=== PATIENT | female | born 1995 | race Caucasian/White ===

== ENCOUNTER 2016-10-10 18:43 | Emergency (ER) | payer OTHER ==
[~2016-10-10] VITALS: Ht 165.1 cm; Wt 60.3 kg
--- NOTE | ~2016-10-10 | CR230 ---
[facility]. [facility] A Service of [facility] RADIOLOGY TEXT RESULTS PATIENT: ARA ROSENTHAL LOCATION: SED : [birth year] UNIT #: [id number] AGE: [address]: DEE SINGLETON SEX: F ORDER DR: [id number] [address] [address] [id number] E MR#: [id number] Acc #: [id number] NAME: ARA ROSENTHAL : 1995 SEX: F STUDY DATE/TIME: 10/10/2016 19:28 UNIT: SED ROOM: STUDY DESCRIPTION: CR Shoulder Min 2 View Rt Attending Physician: Dee Singleton Ordering Physician: Dee Singleton Primary Care Physician: Kendra Castellanos M.D. MEDICAL IMAGING REPORT This report is preliminary unless electronic signature is present. EXAM right shoulder INDICATIONS Trauma. Right shoulder pain. FINDINGS Three views of the right shoulder without comparison. There is no fracture or dislocation. Alignment is anatomic. IMPRESSION Normal right shoulder Dictated by... Mukesh Bennett M.D. THIS IS AN ELECTRONICALLY VERIFIED REPORT Mukesh Bennett M.D. at 10/11/2016 8:13 AM JAMIE/jacky TD: 10/11/2016 08:05 JOB #: [id number] MEDICAL IMAGING REPORT Page 1 of 1
--- NOTE | ~2016-10-10 | US134 ---
[facility] A Service of [facility] RADIOLOGY TEXT RESULTS PATIENT: ARA ROSENTHAL LOCATION: SED : [birth year] UNIT #: [id number] AGE: [address]: DEE SINGLETON SEX: F ORDER DR: [id number] [address] [address] [id number] E MR#: [id number] Acc #: [id number] NAME: ARA ROSENTHAL : 1995 SEX: F STUDY DATE/TIME: 10/10/2016 21:36 UNIT: SED ROOM: STUDY DESCRIPTION: US Transvaginal Attending Physician: Dee Singleton Ordering Physician: David Meadows M.D. Primary Care Physician: Kendra Castellanos M.D. MEDICAL IMAGING REPORT This report is preliminary unless electronic signature is present. EXAM Pelvic ultrasound INDICATION Vaginal bleeding for 1 month. Left-sided pelvic pain for 2 weeks. Last menstrual period 09/06/2016. COMPARISON None available. FINDINGS The uterus measures 6.6 x 2.9 x 4 cm. Echogenicity and echotexture of the uterine myometrium is homogeneous. The endometrial stripe is homogenous measuring 1 cm. The right ovary measures 3.2 x 2.1 x 2.1 cm. There is a small hyperechoic area in the central ovary measuring 7 mm. This is nonspecific however could represent a small ovarian dermoid. The left ovary measures 3.4 x 2.3 x 2.2 cm. There are multiple small follicles in the ovary. There is color-Doppler flow within both ovaries. No adnexal mass or free pelvic fluid. IMPRESSION 1. Small 6 mm hyperechoic area in the central right ovary. This is nonspecific however often small ovarian dermoids can have this appearance. 2. Otherwise, the pelvis is negative. No other significant abnormalities. Dictated by... [facility] A Service of [facility] RADIOLOGY TEXT RESULTS PATIENT: ARA ROSENTHAL LOCATION: SED : [birth year] UNIT #: [id number] AGE: [address]: DEE SINGLETON SEX: F ORDER DR: Mukesh Bennett M.D. THIS IS AN ELECTRONICALLY VERIFIED REPORT Mukesh Bennett M.D. at 10/11/2016 10:13 AM JAMIE/laureen TD: 10/11/2016 09:13 JOB #: [id number] MEDICAL IMAGING REPORT Page 1 of 1
[~2016-10-10 18:43] MED LIST: ALBUTEROL17 GM INH; BENADRYL25 M1 PO; BENADRYL25 MG PO; FAMOTIDINE PO; IMPLANON68 MG/IMPL; KEFLEX PO; MEDROL DOSEPAK4 MG DOB; NO MEDICATIONS; ZITHROMAX1 G/PKT PO
[2016-10-10] MEDS ORDERED: NO MEDICATIONS (19:02)
[2016-10-10 20:20] LABS: URINE SOURCE CLEAN CATCH
[2016-10-10 20:23] LABS: URINE APPEARANCE CLEAR; URINE BILIRUBIN NEG (NEG); URINE BLOOD NEG (NEG); URINE COLOR YELLOW; URINE GLUCOSE NEG (NORM); URINE KETONE NEG (NEG); URINE LEUKOCYTE ESTERASE NEG (NEG); URINE NITRATE NEG (NEG); URINE PH 7.5 (5-8); URINE PROTEIN NEG (NEG)
[2016-10-10 20:35] LABS: MICRO INDICATED? NO
[2016-10-10 21:15] LABS: BASOPHIL# 0.1 X10e3 (0-0.3); BASOPHIL% 0.7 % (0-2.5); DIFF IND NO; EOSINOPHIL# 0.3 X10e3 (0-0.7); HEMOGLOBIN 13.8 gm/dL (12.0-16.0); LYMPHOCYTE# 2.1 X10e3 (1.0-3.5); LYMPHOCYTE% 30.1 % (17.0-45.0); MEAN CELL VOLUME 86.2 FL (83-96); MEAN CORPUSCULAR HEMOGLOBIN 29.8 PG (28-34); MEAN CORPUSCULAR HGB CONC 34.5 g/dL (30-36); MEAN PLATELET VOLUME 8.6 FL (6.5-11.5); MONOCYTE# 0.7 X10e3 (0-1.0); MONOCYTE% 9.7 % (3.0-12.0); NEUTROPHIL# 3.9 X10e3 (1.5-7.1); NEUTROPHIL% 55.5 % (40-75); PLATELET COUNT 237 X10e3 (140-420); RED BLOOD COUNT 4.64 X10e (3.90-5.30); RED CELL DISTRIBUTION WIDTH 13.1 % (11.0-15.5)
[2016-10-10 21:24] LABS: BUN/CREATININE RATIO 15.71; CALCIUM SERUM 8.4 mg/dL (8.4-10.2); CREATININE SERUM 0.7 mg/dL (0.6-1.4); POTASSIUM 3.5 mmol/L (3.5-5.1)
[2016-10-12 20:20] LABS: CHLAMYDIA TRACH Not Detected (Not Detected); N GONOR Not Detected (Not Detected)
== END 2016-10-10 23:09 | disposition home or self-care (01) ==
LOC: SED 18:43
PROVIDERS: Physician Assistant
DX: S40.011A Contusion of right shoulder, initial encounter (principal); N93.8 Other specified abnormal uterine and vaginal bleeding; J45.909 Unspecified asthma, uncomplicated; F17.210 Nicotine dependence, cigarettes, uncomplicated; X58.XXXA Exposure to other specified factors, initial encounter
CPT/HCPCS: 36415; 73030; 76830; 80048; 81003; 84703; 85025; 87210; 87491; 87591; 87808; 87905; 96361; 96374; 99284; J1885

== ENCOUNTER 2016-10-13 21:31 | Emergency (ER) | payer OTHER ==
--- NOTE | ~2016-10-13 | CT2 ---
[facility] A Service of [facility] RADIOLOGY TEXT RESULTS PATIENT: ARA ROSENTHAL LOCATION: CFTX : [birth year] UNIT #: [id number] AGE: [address]: Kelly Chacon APRN SEX: F ORDER DR: [id number] [facility] [address] [place], [place] [address] [id number] E MR#: [id number] Acc #: [id number] NAME: ARA ROSENTHAL : 1995 SEX: F STUDY DATE/TIME: 10/14/2016 1:07 UNIT: CFTX ROOM: STUDY DESCRIPTION: CT Abd and Pelv W Cont Attending Physician: Kelly Chacon A.P.R.N. Ordering Physician: Kelly Chacon A.P.R.N. Primary Care Physician: Kendra Castellanos M.D. MEDICAL IMAGING REPORT This report is preliminary unless electronic signature is present EXAM CT abdomen and pelvis with contrast. INDICATIONS Severe urinary tract infection and generalized abdominal pain today. PROCEDURE Contrast-enhanced CT abdomen and pelvis. This CT exam was performed with one or more of the following radiation dose reduction techniques: automatic exposure control, adjustment of mA and/or kV according to patient size, and iterative reconstruction. FINDINGS Abdomen with contrast: Included lung bases clear. Liver, spleen, kidneys, adrenal glands, pancreas, gallbladder unremarkable. Bowel loops are nondilated. Moderate colonic stool burden. Appendix is normal. Pelvis with contrast: No pelvic mass or fluid. No aggressive appearing bone lesion. IMPRESSION No acute findings in the abdomen or pelvis. Dictated by... Edward Gamino M.D. THIS IS AN ELECTRONICALLY VERIFIED REPORT Edward Gamino M.D. at 10/14/2016 9:53 PM EED/aria TD: 10/14/2016 11:10 [facility] A Service of [facility] RADIOLOGY TEXT RESULTS PATIENT: ARA ROSENTHAL LOCATION: [facility] : [birth year] UNIT #: [id number] AGE: [address]: Kelly Chacon APRN SEX: F ORDER DR: JOB #: [id number] MEDICAL IMAGING REPORT Page 1 of 1 COPY
[2016-10-13 23:39] LABS: BASOPHIL# 0.1 X10e3 (0-0.3); BASOPHIL% 0.8 % (0-2.5); EOSINOPHIL# 0.4 X10e3 (0-0.7); EOSINOPHIL% 4.7 % (0.0-7.0); HEMATOCRIT 43.8 % (35.0-45.0); HEMOGLOBIN 14.9 gm/dL (12.0-16.0); LYMPHOCYTE# 3.1 X10e3 (1.0-3.5); LYMPHOCYTE% 41.1 % (17.0-45.0); MEAN CELL VOLUME 86.8 FL (83-96); MEAN CORPUSCULAR HEMOGLOBIN 29.6 PG (28-34); MEAN CORPUSCULAR HGB CONC 34.1 g/dL (30-36); MEAN PLATELET VOLUME 8.4 FL (6.5-11.5); MONOCYTE# 0.6 X10e3 (0-1.0); MONOCYTE% 7.6 % (3.0-12.0); NEUTROPHIL# 3.5 X10e3 (1.5-7.1); NEUTROPHIL% 45.8 % (40-75); PLATELET COUNT 255 X10e3 (140-420); RED BLOOD COUNT 5.05 X10e (3.90-5.30); RED CELL DISTRIBUTION WIDTH 12.9 % (11.0-15.5); WHITE BLOOD COUNT 7.6 X10e3 (4.0-10.5)
[2016-10-13 23:40] LABS: DIFF IND NO
[2016-10-14 00:06] LABS: ALBUMIN SERUM 4.7 g/dL (3.5-5.0); ALKALINE PHOSPHATASE 121 U/L (32-92); ALT (SGPT) 15 U/L (10-40); AST (SGOT) 20 U/L (10-42); BILIRUBIN,TOTAL 0.4 mg/dL (0.2-2.0); BLOOD UREA NITROGEN 8 mg/dL (9-23); BUN/CREATININE RATIO 11.42; CALCIUM SERUM 9.3 mg/dL (8.4-10.2); CARBON DIOXIDE 27 mmol/L (22-31); CHLORIDE 101 mmol/L (100-111); CREATININE SERUM 0.7 mg/dL (0.6-1.4); GLUCOSE FASTING 82 mg/dL (70-110); LIPASE 27 U/L (22-51); POTASSIUM 3.7 mmol/L (3.5-5.1); PROTEIN TOTAL SERUM 8.6 g/dL (6.0-8.3); SODIUM 132 mmol/L (135-145)
[2016-10-14 00:07] LABS: BILIRUBIN, DIRECT <0.1 mg/dL (0.0-0.2); BILIRUBIN,INDIRECT 0.3 mg/dL (0.0-0.9)
[2016-10-14 00:25] LABS: URINE SOURCE CLEAN CATCH
[2016-10-14 00:32] LABS: URINE APPEARANCE CLEAR; URINE BILIRUBIN NEG (NEG); URINE BLOOD NEG (NEG); URINE COLOR YELLOW; URINE GLUCOSE NEG (NEG); URINE KETONE NEG (NEG); URINE LEUKOCYTE ESTERASE 2+ (NEG); URINE NITRATE NEG (NEG); URINE PH 7.5 (5-8); URINE PROTEIN NEG (NEG); URINE SPECIFIC GRAVITY 1.023 (1.003-1.035)
[2016-10-14 00:35] LABS: CULTURE INDICATED? YES; URBCS1 AUWI 0-2 /[HPF] (0-2); URINE BACTERIA AUWI 2+ (NEGATIVE); URINE SQUAMOUS EPITHELIAL CELL FEW /[HPF]
== END 2016-10-14 02:00 | disposition home or self-care (01) ==
LOC: CED 21:31 → CFTX 21:31
PROVIDERS: Nurse Practitioner
DX: N39.0 Urinary tract infection, site not specified (principal); F17.210 Nicotine dependence, cigarettes, uncomplicated; Z91.018 Allergy to other foods
CPT/HCPCS: 36415; 74177; 80048; 80076; 81003; 83690; 84703; 85025; 87086; 96360; 99284; J1885; Q9967